=== PATIENT | female | born 1970 | race Hispanic/Latino ===

== ENCOUNTER 2024-11-20 06:28 | Day surgery (SDC) | payer OTHER, MEDICAID ==
[2024-11-15 09:55] VITALS: BP 154/59; PULSE 76; RESP 18; TEMP 97.9
[2024-11-15 10:04] LABS: BASOPHILS # (AUTO) 0.05 K/uL (0.00-0.20); BASOPHILS % (AUTO) 0.4 % (0.0-5.0); EOSINOPHILS # (AUTO) 0.37 K/uL (0.00-0.70); EOSINOPHILS % (AUTO) 3.1 % (0.0-8.0); HEMATOCRIT 36.8 % (36-48); IMMATURE GRANULOCYTE ABSOLUTE 0.07 K/uL (0-1); LYMPHOCYTES % (AUTO) 24.7 % (21.0-51.0); MEAN CORPUSCULAR HGB CONC 31.3 g/dL (32.0-36.0); MEAN CORPUSCULAR VOLUME 83.3 fL (79-99); MONOCYTES # (AUTO) 0.6 K/uL (0.1-1.0); MONOCYTES % (AUTO) 4.8 % (3.0-13.0); NEUTROPHILS % (AUTO) 66.4 % (40.0-77.0); PLATELET COUNT (AUTO) 471 K/uL (130-400); RED BLOOD CELL COUNT(AUTO) 4.42 MIL/uL (4.00-5.50); RED CELL DISTRIBUTION WIDTH 14.2 % (11.0-15.5)
[2024-11-15 10:06] LABS: APPEARANCE,URINE CLOUDY (CLEAR); BILIRUBIN,URINE NEGATIVE (NEGATIVE); COLOR,URINE LIGHT-YELLOW (YELLOW); GLUCOSE, URINE (UA) >=1000 mg/dL (NEGATIVE); KETONES,URINE NEGATIVE (NEGATIVE); LEUKOCYTE ESTERASE ,URINE 250 Leu/uL (NEGATIVE); NITRATE,URINE 1+ (NEGATIVE); PROTEIN,URINE 70 mg/dL (NEGATIVE); UROBILINOGEN,URINE 0.2 mg/dL (0.2-1.0)
[2024-11-15 10:12] LABS: CREATININE 1.4 mg/dL (0.5-1.0); POTASSIUM 4.8 mmol/L (3.5-5.1)
[2024-11-15 10:15] LABS: INR <= 0.93 (0.85-1.15)
[2024-11-15 10:16] LABS: PARTIAL THROMBOPLASTIN TIME 27.3 SEC (26.3-35.5)
[2024-11-15 10:19] LABS: ADD UA MICROSCOPIC YES
[2024-11-15 10:40] LABS: B-TYPE NATRIURETIC PEPTIDE 244 pg/mL (0-100)
[2024-11-15 10:44] LABS: BACTERIA,URINE RARE /HPF (None Seen); MUCUS,URINE RARE LPF (None Seen); SQUAMOUS EPITHELIAL CELL,UR FEW /HPF (0-2); WBC,URINE 26-50 /HPF (0-1)
--- NOTE | 2024-11-15 10:50 | HMCIMG ---
CHEST 1VW REASON: PRE OP COMPARISON: 09/22/2024 FINDINGS: Lungs are clear. Heart size is normal. Mediastinum and bony thorax appear unremarkable. IMPRESSION: 1. No acute process seen in the chest.
--- NOTE | 2024-11-19 13:32 | NUR ---
report reported ua/urine cx/wbc/platelets/rbs/creat/bun to [facility] with dr pérez. ok to proceed
[~2024-11-20] VITALS: Ht 149.9 cm; Wt 82.6 kg
[2024-11-20] VITALS (14 sets, daily range): BP systolic 121–173; BP diastolic 56–103; PULSE 84–94; RESP 12–19; TEMP 97.2–97.6
[~2024-11-20 06:28] MED LIST: ALPR0.255 PO; ASPI-1005 PO; CLOP-31 PO; DAPA5TAB PO; FURO40TA5 PO; INSU100V37 SQ; INSU100V50 SQ; MECL25TA39 PO; METO-391 PO; NIFE-79 PO; NITR0.4T50 SL; PANT20TA18 PO
--- NOTE | 2024-11-20 06:43 | EKG ---
[facility] Test Date: 2024-11-20 Test Time: 07:32:07 Pat Name: GERMÁN MARSHALL Department: [facility] Room: [facility] Gender: F Merchandise Coordinator: [id number] : 1970 Requested By: JOHN SAN Order Number: [id number] Reading MD: John San Measurements Intervals [place] Rate: 79 P: 11 VT: 175 QRS: 0 QRSD: 89 T: 116 QT: 392 QTc: 450 Interpretive Statements Sinus rhythm Probable left atrial enlargement LVH with secondary repolarization abnormality Nonspecific STT abnormality Compared to ECG 09/23/2024 06:59:48 Left-axis deviation no longer present Myocardial infarct finding no longer present Electronically Signed On 11-20-2024 07:49:58 [employer] by John San Please click the below link to view image of tracing.
[2024-11-20] MEDS: 0.9%NACL 1000ML 1,000 ML IV SCH (07:45)
[2024-11-20] MEDS ORDERED: LIDOCAINE HCL 400MG/20ML VIAL ONE (12:44)
[2024-11-20] MEDS ORDERED: NITROGLYCERIN 50MG VIAL ONE (12:45)
[2024-11-20] MEDS ORDERED: IOHEXOL 350 MG/ML 100ML INFUS..BTL IV ONE (12:45)
[2024-11-20] MEDS ORDERED: HEParin-NS 1,000 UNIT/500 ML 1,000 ML IV ONE (12:45)
[2024-11-20] MEDS ORDERED: IOHEXOL-350 50ML VIAL IV ONE (12:55)
[2024-11-20] MEDS ORDERED: FENTanyl CITRate PF 50 MCG/1 ML 2ML VIAL ONE (13:03)
[2024-11-20] MEDS ORDERED: MIDAZOLAM HCL 1 MG/ML 2ML VIAL ONE (13:03)
[2024-11-20] MEDS ORDERED: SODIUM BICARB 50MEQ 50ML VIAL 50 ML ONE (13:11)
[2024-11-20] MEDS ORDERED: HEParin 10,000 UNIT/10ML (1,000 UNIT/ML) VIAL ONE (13:15)
[2024-11-20] MEDS ORDERED: ASPIRIN 81MG CHEW TAB ONE (14:14)
[2024-11-20] MEDS ORDERED: cloPIDOgrel 300MG TAB ONE (14:14)
[2024-11-20] MEDS ORDERED: 0.9%NACL 1000ML 1,000 ML IV SCH (14:30)
--- NOTE | 2024-11-20 14:51 | PRN ---
Right And Left Heart Catheterization, Coronary Arteriogram, Left Ventricular Cine Angiogram, Ifr Lad, Drug-Eluting Stent Lad Indication: Patient recently suffered a myocardial infarct treated with stent of the right coronary but had diffuse distal right coronary disease, diffuse LAD disease, and diffuse left circumflex disease. She continues to experience dyspnea on exertion and chest pressure, possible heart failure or ischemia. Technique: Under local anesthesia with 1% lidocaine using fluoroscopic and ultrasound guidance and micropuncture technique, the right common femoral artery and common femoral vein were punctured anteriorly. A seven Australian sheath was advanced into the vein and a six Australian sheath was advanced into the artery. Right heart catheterization was carried out with a seven Australian S curve Beaumont- Elvis catheter and pressures were measured at RA, RV, PCW and PA. left heart catheterization was carried out with a six Australian angled pigtail and left ventricular cine angiography was performed after obtaining LV pressures. A pullback recording was obtained and an exchange was made for a six Australian 4 cm left Maria Elena which was used to engage the left main obtain left coronary angiograms in multiple projections. We then exchanged for a six Australian AL1 with which we engaged the high anterior right coronary and obtained right coronary arteriograms in multiple projections. We then reviewed the images and compared them to previous images, and then administered 2000 units aqueous heparin. We engaged the left main with a six Australian FL4 guide and performed IFR on the proximal to mid LAD disease. This was 59; we administered an additional 4000 units aqueous heparin and 300 mg clopidogrel and 162 mg aspirin and deployed a 2.25 by 38 mm drug-eluting stent commencing immediately after the 1st diagonal. We then exchanged for a two by 22 mm drug-eluting stent which was positioned in the more mid to distal segment of the LAD and deployed this at 12 atmospheres. Results were inspected angiographically in the apparatus was withdrawn. Arterial hemostasis was achieved using Perclose and venous hemostasis was achieved using Vascade. Final ACT was 277. No complications occurred. The patient was returned to her room in stable condition after receiving a total of 160 mL contrast. Hydration had commenced on presentation with nearly 1 L of fluid administered before the procedure, and an additional 750 mL was administered and 5 hours after the procedure. Results: Hemodynamics: LVEDP was 19 before angiography and 20 after angiography. LV systolic pressure was 150 and aortic root pressure was 157/74, mean 103. Mean right atrial pressure was five with A-wave 14 and V-wave nine. RV systolic pressure was 32 and pulmonary artery pressure was 32/15, mean 20. Mean pulmonary capillary wedge pressure was 14 with A-wave 15 and V-wave 15. Ventriculography: Left ventricular cine angiography demonstrates the apical half of the ventricle to be hypokinetic with a 42% ejection fraction calculated by planimetry. The mitral valve is competent. Angiography: This is a right-dominant system and there is a long patent stent in the proximal vertical portion of the right coronary which is widely patent with no edge dissections or filling defects. Distally the right coronary supplies a posterior descending and three posterolateral. The posterolateral is are less than 1 mm in diameter and diffusely diseased. The left anterior descending is diffusely diseased and less than 1.5 mm diameter and there is a 70% segmental stenosis in the proximal to midportion of this vessel. This does not appear to be amenable to intervention. The left main is free of disease. The left anterior descending gives rise to two diagonals that both arise in the proximal 20 mm of the vessel. After the 1st of these there is an 80% segmental stenosis about 36 mm in length. In the midportion of the LAD, spanning the 2nd diagonal, there is an 80% stenosis about 20 mm in length. The left circumflex supplies three small diameter obtuse marginals which appeared to be 90% narrowed in the 1st obtuse marginal, small and of limited distribution in the 2nd obtuse marginal, and the 3rd obtuse margin was probably larger in distribution but small in caliber and appears to be 99-100% occluded with only faint distal imaging. The circumflex then terminates in a large inferolateral branch that courses to the apex and is free of disease. Intervention: The 36 mm by 80 mm proximal LAD lesion was notable for a pre intervention IFR of 0.59, and it was reduced to a 0% residual with no filling defect or edge dissection and with excellent strut apposition. There was inappropriate step-up and step-down. The mid LAD 80% segmental stenosis about 20 mm in length, was reduced to a 0% residual with no edge dissection or filling defect, with excellent strut apposition and inappropriate step-up and step-down. Conclusions: Mild systolic and diastolic heart failure. Severe diffuse three-vessel coronary disease. With previous treatment of the right coronary and current successful treatment of the LAD, everything that can be revascularized has been appropriately treated. LETY SAN MD Nov 20, 2024 14:51
[2024-11-20] MEDS: acetaMINOPHEN 325 MG TAB PO ONE (17:44)
[2024-11-20] MEDS ORDERED: ATOR40TA71 PO (18:10)
[2024-11-20] MEDS ORDERED: CLOP75TA32 PO (18:10)
[2024-11-21] MEDS ORDERED: ASPIRIN 81MG CHEW TAB PO SCH (09:00)
[2024-11-21] MEDS ORDERED: cloPIDOgrel 75MG TAB PO SCH (09:00)
== END 2024-11-20 19:17 | disposition home or self-care (01) ==
LOC: DAH 06:28
PROVIDERS: ATTEND Internal Medicine Cardiovascular Disease
DX: R06.09 Other forms of dyspnea (principal); I25.119 Atherosclerotic heart disease of native coronary artery with unspecified angina pectoris; I25.708 Atherosclerosis of coronary artery bypass graft(s), unspecified, with other forms of angina pectoris; I25.2 Old myocardial infarction; I11.0 Hypertensive heart disease with heart failure; I50.42 Chronic combined systolic (congestive) and diastolic (congestive) heart failure; E78.5 Hyperlipidemia, unspecified; E11.9 Type 2 diabetes mellitus without complications; Z90.49 Acquired absence of other specified parts of digestive tract; Z87.891 Personal history of nicotine dependence; Z79.82 Long term (current) use of aspirin; Z79.899 Other long term (current) drug therapy
CPT/HCPCS: 80048; 83880; 85025; 85610; 85730; 87086 ×2; 87186; 81001; 36415 ×2; 71045; 93571; 85347; 82948; 93460; 93005; C9600; C1887; C1894 ×3; C1874 ×2; C1760 ×2; C1769; J3010; J3490 ×3; J7030; J1644 ×2; J2250; Q9967 ×2; A4215; A4335; A4222; A4221; A4663; A4216; A4606; Q9965 ×2; A4223 ×3; A4554; 96360; 96361; 99156; 99157